=== PATIENT | female | born 1940 | race Caucasian/White ===

== ENCOUNTER 2021-10-27 08:00 | Emergency (ER) | payer MEDICARE, OTHER ==
[~2021-10-27] VITALS: Ht 165.1 cm; Wt 48.6 kg
[2021-10-27] MEDS ORDERED: PERTUSS(ACELL),DIPH,TET VAC/PF 0.5 ML SYRINGE IM. ONE (09:45)
[2021-10-27 12:35] VITALS: BP 158/84
== END 2021-10-27 13:29 | disposition home or self-care (01) ==
LOC: EMS 08:00
DX: S01.81XA Laceration without foreign body of other part of head, initial encounter (principal); I10 Essential (primary) hypertension; W01.198A Fall on same level from slipping, tripping and stumbling with subsequent striking against other object, initial encounter; Y93.89 Activity, other specified; Y92.89 Other specified places as the place of occurrence of the external cause; Y99.8 Other external cause status
CPT/HCPCS: 12011; 70110; 90471; 90715; 99285

== ENCOUNTER 2024-08-31 08:38 | Emergency (ER) | payer MEDICARE, OTHER ==
[~2024-08-31] VITALS: Ht 160 cm; Wt 54.5 kg
[2024-08-31 08:46] VITALS: BP 151/70; PULSE 66; RESP 16; TEMP 98.3; O2SAT 98
[2024-08-31 09:27] LABS: COVID AG,FIA SOURCE NASAL SWAB
[2024-08-31 09:46] LABS: SARS-COV2 (COVID) ANTIGEN,FIA Negative (Negative)
[2024-08-31 09:47] LABS: INFLUENZA TYPE A NEGATIVE FOR TYPE A (NEGATIVE); INFLUENZA TYPE B NEGATIVE FOR TYPE B (NEGATIVE)
== END 2024-08-31 10:16 | disposition home or self-care (01) ==
LOC: EMS 08:49
DX: U07.1 COVID-19 (principal); I10 Essential (primary) hypertension; Z90.710 Acquired absence of both cervix and uterus
CPT/HCPCS: 87804; 99283